=== PATIENT | male | born 1970 | race African-American/Black ===

== ENCOUNTER 2016-08-16 13:02 | Inpatient (IN) | payer OTHER ==
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
[2016-08-16] MEDS ORDERED: P-EPHED 60MG/TRIPROLIDI 2.5MG TABLET PO PRN (14:40)
[2016-08-16] MEDS ORDERED: LOPERAMIDE HCL 2 MG CAPSULE PO PRN (14:40)
[2016-08-16] MEDS ORDERED: MENTHOL/PHENOL 1 EACH UD MM PRN (14:40)
[2016-08-16] MEDS ORDERED: guaiFENesin/D-METHORPHAN HB 10 ML UNIT-DOSE CUPS PO PRN (14:40)
[2016-08-16] MEDS ORDERED: hydrOXYzine PAMOATE 25 MG CAPSULE (FP) PO PRN (14:40)
[2016-08-16] MEDS ORDERED: MAGNESIUM CITRATE 300 ML BOTTLE PO PRN (14:40)
[2016-08-16] MEDS ORDERED: diphenhydrAMINE HCL 50 MG CAPSULE PO PRN (14:40)
[2016-08-16] MEDS ORDERED: IBUPROFEN 400 MG TABLET (FP) PO PRN (14:40)
[2016-08-16] MEDS ORDERED: METHADONE HCL 10 MG TABLET (FOR DETOX USE ONLY) PO ONE ×2 (14:40→23:00)
[2016-08-16] MEDS ORDERED: MAG HYDROX/AL HYDROX/SIMETH 30 ML UNIT-DOSE CUP PO PRN (14:40)
[2016-08-16] MEDS ORDERED: MAGNESIUM HYDROX 2400MG/30ML ORAL SUSPENSION 30 ML CUP PO PRN (14:40)
[2016-08-16] MEDS ORDERED: ACETAMINOPHEN 325 MG TABLET (FP) PO PRN (14:40)
[2016-08-16 14:55] VITALS: BMI 27.2
[2016-08-16] MEDS: chlordiazePOXIDE HCL 25 MG CAPSULE PO PRN (15:45)
[2016-08-16] MEDS: chlordiazePOXIDE HCL 25 MG CAPSULE PO SCH ×2 (17:21→22:20)
[2016-08-16 18:00] LABS: URINE APPEARANCE CLEAR; URINE BILIRUBIN NEGATIVE (NEGATIVE); URINE COLOR STRAW; URINE GLUCOSE (UA) NEGATIVE (NEGATIVE); URINE KETONE NEGATIVE (NEGATIVE); URINE LEUK ESTERASE NEGATIVE (NEGATIVE); URINE NITRITE NEGATIVE (NEGATIVE); URINE PROTEIN NEGATIVE (NEGATIVE); URINE UROBILINOGEN NEGATIVE E.U./dl (0.2-1.0)
[2016-08-16 18:19] LABS: URINE BLOOD 1+ (NEGATIVE)
[2016-08-16 20:38] LABS: URINE MUCUS RARE; URINE RBC <1 /hpf (0-3); URINE WBC <1 /hpf (3-5)
[2016-08-16] MEDS: THIAMINE HCL 100 MG TABLET (FP) PO SCH (22:19)
[2016-08-17] MEDS: chlordiazePOXIDE HCL 25 MG CAPSULE PO SCH ×4 (05:53→22:19)
--- NOTE | 2016-08-17 08:25 | EKG ---
Test Reason : Blood Pressure : / mmHG Vent. Rate : 066 BPM Atrial Rate : 066 BPM P-R Int : 144 ms QRS Dur : 100 ms QT Int : 408 ms P-R-T Axes : 063 064 055 degrees QTc Int : 427 ms NORMAL SINUS RHYTHM NORMAL ECG NO PREVIOUS ECGS AVAILABLE Confirmed by LUÍS PICKARD MD ([id number]) on 08/17/2016 8:25:09 AM Referred By: Confirmed By:LUÍS PICKARD MD
[2016-08-17] MEDS ORDERED: METHADONE HCL 10 MG TABLET (FOR DETOX USE ONLY) PO SCH (10:00)
[2016-08-17] MEDS: NICOTINE 21 MG/24 HOURS TOPICAL PATCH TD SCH (10:10)
[2016-08-17] MEDS: PRENATAL VITAMINS W/ FOLIC ACID TABLET (FP) PO SCH (10:10)
--- NOTE | 2016-08-17 10:33 | PN ---
[facility] CIWA - CIWA Score Nausea/Vomitin-No Nausea/No Vomiting Muscle Tremors: 4-Moderate,w/Arms Extend Anxiety: 4-Mod. Anxious/Guarded Agitation: 4-Moderately Restless Paroxysmal Sweats: 1-Minimal Palms Moist Orientation: 0-Oriented Tacttile Disturbances: 3-Moderate Itch/Numb/Burn Auditory Disturbances: 0-None Visual Disturbances: 0-None Headache: 0-None Present CIWA-Ar Total Score: 16 BHS COWS - Scale Resting Pulse: 0= [place] 80 or Below Sweatin= Chills/Flushing Restless Observation: 3= Extraneous Movement Pupil Size: 2= Moderately Dilated Bone or Joint Aches: 4=Acute Joint/Muscle Pain Runny Nose/ Eye Tearin= Nasal Congestion GI Upset > 30mins: 1= Stomach Cramp Tremor Observation of Outstretched Hands: 1= Tremor [place], Not Seen Yawning Observation: 1= 1-2x During Session Anxiety or Irritability: 2=Irritable/Anxious Goose Flesh Skin: 0=Smooth Skin COWS Score: 16 [facility] Progress Note (SOAP) Subjective: ANXIETY, SWEATS,RUNNY NOSE,INTERMITTENT SLEEP. Objective: 08/17/16 10:32 Vital Signs Temperature 96.2 F L 08/17/16 10:00 Pulse Rate 76 08/17/16 10:00 Respiratory Rate 18 08/17/16 10:00 Blood Pressure 135/80 08/17/16 10:00 O2 Sat by Pulse Oximetry (%) Laboratory Last Values Urine Color Straw 08/16/16 13:00 Urine Appearance Clear 08/16/16 13:00 Urine pH 5.0 (5.0-8.0) 08/16/16 13:00 Ur Specific [place] 1.008 (1.001-1.035) 08/16/16 13:00 Urine Protein Negative (NEGATIVE) 08/16/16 13:00 Urine Glucose (UA) Negative (NEGATIVE) 08/16/16 13:00 Urine Ketones Negative (NEGATIVE) 08/16/16 13:00 Urine Blood 1+ (NEGATIVE) H 08/16/16 13:00 Urine Nitrite Negative (NEGATIVE) 08/16/16 13:00 Urine Bilirubin Negative (NEGATIVE) 08/16/16 13:00 Urine Urobilinogen Negative E.U./dl (0.2-1.0) 08/16/16 13:00 Ur Leukocyte Esterase Negative (NEGATIVE) 08/16/16 13:00 Urine RBC <1 /hpf (0-3) 08/16/16 13:00 Urine WBC <1 /hpf (3-5) 08/16/16 13:00 Urine Mucus Rare 08/16/16 13:00 Assessment: 08/17/16 10:32 WITHDRAWAL SX Plan: CONTINUE DETOX
[2016-08-17 10:46] LABS: MCH 28.4 pg (25.7-33.7); MCHC 32.3 g/dl (32.0-35.9); MEAN CELL VOLUME 87.9 fl (80-96); MEAN PLT VOLUME 8.7 fl (7.5-11.1); PLATELET COUNT 283 K/MM3 (134-434); RDW 13.9 % (11.9-15.9); WHITE BLOOD COUNT 7.8 K/mm3 (4.0-10.0)
[2016-08-17 11:02] LABS: ALBUMIN 4.1 g/dl (3.4-5.0); ALK PHOS 99 U/L (45-117); ANION GAP 9 (8-16); BILIRUBIN,TOTAL 0.5 mg/dL (0.2-1.0); CO2 26 mmol/L (21-32); COCKROFT - GAULT 92.76; CREATININE 1.2 mg/dL (0.7-1.3); GLUCOSE,RANDOM 121 mg/dL (74-106); SGOT/AST 36 U/L (15-37); SGPT/ALT 41 U/L (12-78); TOT PROT 7.4 g/dl (6.4-8.2)
--- NOTE | 2016-08-17 11:41 | CONSULT ---
[facility] Psychiatric Consult - Data Date of interview: 08/17/16 Admission source: [facility] Identifying data: Readmission to [facility] for this 46 y/o AA male seeking detox treatment for heroin and crack dependence.Patient is single,a father of three,domiciled and employed. Substance Abuse History: - Smoking Cessation. Smoking history: Current every day smoker. Have you smoked in the past 12 months: Yes. Aproximately how many cigarettes per day: 20. Cigars Per Day: 0. Hx Chewing Tobacco Use: No. Initiated information on smoking cessation: Yes. 'Breaking Loose' booklet given : 08/16/16. - Substance & Tx. History. Hx Alcohol Use: Yes. Hx Substance Use : Yes. Substance Use Type: Alcohol, Heroin. Hx Substance Use Treatment: Yes. - Substances Abused. Alcohol. Route: Oral. Amount used: beer 3- 240z, Vodka 1pt/d. Age of first use: 13. Date of Last Use: 08/16/16. Heroin. Route: Inhalation. Frequency: Daily. Amount used: 10 bags/d. Age of first use : 28. Date of Last Use: 08/16/16. Confirmed by patient. Medical History: Patient endorses good general health. Psychiatric History: Patient denies. Physical/Sexual Abuse/Trauma History: Patient denies. Additional Comment: Urine Drug Screen Results: MARLENE-Cocaine, OPI-Opiates.Noted. Mental Status Exam - Mental Status Exam Alert and Oriented to: Time, Place Cognitive Function: Good Patient Appearance: Well Groomed Mood: Hopeful, Euthymic Affect: Appropriate, Normal Range Patient Behavior: Appropriate, Cooperative Speech Pattern: Clear, Appropriate Voice Loudness: Normal Thought Process: Goal Oriented Thought Disorder: Not Present Hallucinations: Denies Suicidal Ideation: Denies Homicidal Ideation: Denies Insight/Judgement: Poor Sleep: Poorly, Difficulty falling asleep Appetite: Good Muscle strength/Tone: Normal Gait/Station: Normal Psychiatric Findings - Problem List ([place] 1, 2,3) (1) Alcohol dependence Current Visit: Yes Status: Acute (2) Heroin dependence Current Visit: Yes Status: Acute (3) Nicotine dependence Current Visit: Yes Status: Acute Qualifiers: Nicotine product type: cigarettes Substance use status: uncomplicated Qualified Code(s): F17.210 - Nicotine dependence, cigarettes, uncomplicated (4) Cocaine dependence Current Visit: Yes Status: Acute (5) Insomnia Current Visit: Yes Status: Acute - Initial Treatment Plan Initial Treatment Plan: Psychoeducation.Detoxification.Zolpidem 10 mg po hs prn.Patient made aware of risk of parasomnias.Agrees with this careplan.Observation.
[2016-08-17 12:54] LABS: HIV 1 & 2 AB NEGATIVE; HIV 1 AGp24 NEGATIVE
[2016-08-17] MEDS: chlordiazePOXIDE HCL 25 MG CAPSULE PO PRN (19:56)
[2016-08-17] MEDS: POLYMYXIN B SULFATE/TMP 10 ML OPHTHALMIC SOLUTION OU SCH ×2 (22:18)
[2016-08-17] MEDS: TOLNAFTATE 1% CREAM 15 GM TUBE TP SCH (22:19)
[2016-08-17] MEDS: THIAMINE HCL 100 MG TABLET (FP) PO SCH (22:19)
[2016-08-17] MEDS: ZOLPIDEM TARTRATE 10 MG TABLET (PARK CARE ONLY) PO PRN (22:20)
[2016-08-18] MEDS: chlordiazePOXIDE HCL 25 MG CAPSULE PO SCH ×2 (05:58→10:14)
[2016-08-18] MEDS: METHADONE HCL 5 MG TABLET (FOR DETOX USE ONLY) PO SCH (10:14)
[2016-08-18] MEDS: PRENATAL VITAMINS W/ FOLIC ACID TABLET (FP) PO SCH (10:14)
[2016-08-18] MEDS: POLYMYXIN B SULFATE/TMP 10 ML OPHTHALMIC SOLUTION OU SCH ×4 (10:14→22:27)
[2016-08-18] MEDS: NICOTINE 21 MG/24 HOURS TOPICAL PATCH TD SCH (10:15)
[2016-08-18] MEDS: TOLNAFTATE 1% CREAM 15 GM TUBE TP SCH ×3 (10:15→22:28)
--- NOTE | 2016-08-18 11:41 | PN ---
[facility] CIWA - CIWA Score Nausea/Vomitin-No Nausea/No Vomiting Muscle Tremors: 4-Moderate,w/Arms Extend Anxiety: 5 Agitation: 5 Paroxysmal Sweats: 1-Minimal Palms Moist Orientation: 0-Oriented Tacttile Disturbances: 3-Moderate Itch/Numb/Burn Auditory Disturbances: 0-None Visual Disturbances: 0-None Headache: 0-None Present CIWA-Ar Total Score: 18 BHS COWS - Scale Resting Pulse: 0= [place] 80 or Below Sweatin= Chills/Flushing Restless Observation: 3= Extraneous Movement Pupil Size: 2= Moderately Dilated Bone or Joint Aches: 4=Acute Joint/Muscle Pain Runny Nose/ Eye Tearin= Nasal Congestion GI Upset > 30mins: 1= Stomach Cramp Tremor Observation of Outstretched Hands: 1= Tremor [place], Not Seen Yawning Observation: 1= 1-2x During Session Anxiety or Irritability: 2=Irritable/Anxious Goose Flesh Skin: 0=Smooth Skin COWS Score: 16 S Progress Note (SOAP) Subjective: ANXIETY,IRRITABILITY,SWEATS/CHILLS. Objective: 08/18/16 11:41 Vital Signs Temperature 96.1 F L 08/18/16 09:21 Pulse Rate 68 08/18/16 09:21 Respiratory Rate 18 08/18/16 09:21 Blood Pressure 132/91 08/18/16 09:21 O2 Sat by Pulse Oximetry (%) Laboratory Last Values WBC 7.8 K/mm3 (4.0-10.0) 08/17/16 06:00 RBC 4.79 M/mm3 (4.00-5.60) 08/17/16 06:00 Hgb 13.6 GM/dL (11.7-16.9) 08/17/16 06:00 Hct 42.1 % (35.4-49) 08/17/16 06:00 MCV 87.9 fl (80-96) 08/17/16 06:00 MCHC 32.3 g/dl (32.0-35.9) 08/17/16 06:00 RDW 13.9 % (11.9-15.9) 08/17/16 06:00 Plt Count 283 K/MM3 (134-434) D 08/17/16 06:00 MPV 8.7 fl (7.5-11.1) 08/17/16 06:00 Sodium 138 mmol/L (136-145) 08/17/16 06:00 Potassium 4.6 mmol/L (3.5-5.1) 08/17/16 06:00 Chloride 103 mmol/L (98-107) 08/17/16 06:00 Carbon Dioxide 26 mmol/L (21-32) 08/17/16 06:00 Anion Gap 9 (8-16) 08/17/16 06:00 BUN 10 mg/dL (7-18) 08/17/16 06:00 Creatinine 1.2 mg/dL (0.7-1.3) 08/17/16 06:00 Creat Clearance w eGFR > 60 (>60) 08/17/16 06:00 Random Glucose 121 mg/dL (74-106) H D 08/17/16 06:00 Calcium 9.0 mg/dL (8.5-10.1) 08/17/16 06:00 Total Bilirubin 0.5 mg/dL (0.2-1.0) D 08/17/16 06:00 AST 36 U/L (15-37) D 08/17/16 06:00 ALT 41 U/L (12-78) D 08/17/16 06:00 Alkaline Phosphatase 99 U/L (45-117) D 08/17/16 06:00 Total Protein 7.4 g/dl (6.4-8.2) D 08/17/16 06:00 Albumin 4.1 g/dl (3.4-5.0) D 08/17/16 06:00 Urine Color Straw 08/16/16 13:00 Urine Appearance Clear 08/16/16 13:00 Urine pH 5.0 (5.0-8.0) 08/16/16 13:00 Ur Specific [place] 1.008 (1.001-1.035) 08/16/16 13:00 Urine Protein Negative (NEGATIVE) 08/16/16 13:00 Urine Glucose (UA) Negative (NEGATIVE) 08/16/16 13:00 Urine Ketones Negative (NEGATIVE) 08/16/16 13:00 Urine Blood 1+ (NEGATIVE) H 08/16/16 13:00 Urine Nitrite Negative (NEGATIVE) 08/16/16 13:00 Urine Bilirubin Negative (NEGATIVE) 08/16/16 13:00 Urine Urobilinogen Negative E.U./dl (0.2-1.0) 08/16/16 13:00 Ur Leukocyte Esterase Negative (NEGATIVE) 08/16/16 13:00 Urine RBC <1 /hpf (0-3) 08/16/16 13:00 Urine WBC <1 /hpf (3-5) 08/16/16 13:00 Urine Mucus Rare 08/16/16 13:00 RPR Titer Nonreactive (NONREACTIVE) 08/17/16 06:00 HIV 1&2 Antibody Screen Negative 08/16/16 14:00 HIV P24 Antigen Negative 08/16/16 14:00 Assessment: 08/18/16 11:41 WITHDRAWAL SX Plan: CONTINUE DETOX
[2016-08-18] MEDS: NICOTINE POLACRILEX 4 MG GUM BUC PRN (17:22)
[2016-08-18] MEDS: chlordiazePOXIDE 5 MG CAPSULE PO SCH ×2 (17:45→22:28)
[2016-08-18] MEDS: THIAMINE HCL 100 MG TABLET (FP) PO SCH (22:28)
[2016-08-18] MEDS: ZOLPIDEM TARTRATE 10 MG TABLET (PARK CARE ONLY) PO PRN (22:30)
[2016-08-19] MEDS ORDERED: CYCLOBENZAPRINE HCL 10 MG TABLET (FP) PO PRN (00:04)
[2016-08-19] MEDS: chlordiazePOXIDE 5 MG CAPSULE PO SCH ×2 (05:26→10:21)
[2016-08-19] MEDS: POLYMYXIN B SULFATE/TMP 10 ML OPHTHALMIC SOLUTION OU SCH ×4 (10:20→22:11)
[2016-08-19] MEDS: NICOTINE 21 MG/24 HOURS TOPICAL PATCH TD SCH (10:21)
[2016-08-19] MEDS: TOLNAFTATE 1% CREAM 15 GM TUBE TP SCH ×2 (10:21→22:45)
[2016-08-19] MEDS: PRENATAL VITAMINS W/ FOLIC ACID TABLET (FP) PO SCH (10:21)
[2016-08-19] MEDS: METHADONE HCL 5 MG TABLET (FOR DETOX USE ONLY) PO SCH (10:21)
[2016-08-19] MEDS: NICOTINE POLACRILEX 4 MG GUM BUC PRN (12:22)
--- NOTE | 2016-08-19 12:24 | PN ---
BHS Progress Note (SOAP) Subjective: Sweating,interrupted sleep,restless Objective: 08/19/16 12:24 Vital Signs - 8 hr 08/19/16 08/19/16 06:37 09:26 Temperature 96.7 F L 96.5 F L Pulse Rate 65 81 Respiratory 18 18 Rate Blood Pressure 117/80 135/84 Laboratory Last Values WBC 7.8 K/mm3 (4.0-10.0) 08/17/16 06:00 RBC 4.79 M/mm3 (4.00-5.60) 08/17/16 06:00 Hgb 13.6 GM/dL (11.7-16.9) 08/17/16 06:00 Hct 42.1 % (35.4-49) 08/17/16 06:00 MCV 87.9 fl (80-96) 08/17/16 06:00 MCHC 32.3 g/dl (32.0-35.9) 08/17/16 06:00 RDW 13.9 % (11.9-15.9) 08/17/16 06:00 Plt Count 283 K/MM3 (134-434) D 08/17/16 06:00 MPV 8.7 fl (7.5-11.1) 08/17/16 06:00 Sodium 138 mmol/L (136-145) 08/17/16 06:00 Potassium 4.6 mmol/L (3.5-5.1) 08/17/16 06:00 Chloride 103 mmol/L (98-107) 08/17/16 06:00 Carbon Dioxide 26 mmol/L (21-32) 08/17/16 06:00 Anion Gap 9 (8-16) 08/17/16 06:00 BUN 10 mg/dL (7-18) 08/17/16 06:00 Creatinine 1.2 mg/dL (0.7-1.3) 08/17/16 06:00 Creat Clearance w eGFR > 60 (>60) 08/17/16 06:00 Random Glucose 121 mg/dL (74-106) H D 08/17/16 06:00 Calcium 9.0 mg/dL (8.5-10.1) 08/17/16 06:00 Total Bilirubin 0.5 mg/dL (0.2-1.0) D 08/17/16 06:00 AST 36 U/L (15-37) D 08/17/16 06:00 ALT 41 U/L (12-78) D 08/17/16 06:00 Alkaline Phosphatase 99 U/L (45-117) D 08/17/16 06:00 Total Protein 7.4 g/dl (6.4-8.2) D 08/17/16 06:00 Albumin 4.1 g/dl (3.4-5.0) D 08/17/16 06:00 Urine Color Straw 08/16/16 13:00 Urine Appearance Clear 08/16/16 13:00 Urine pH 5.0 (5.0-8.0) 08/16/16 13:00 Ur Specific [place] 1.008 (1.001-1.035) 08/16/16 13:00 Urine Protein Negative (NEGATIVE) 08/16/16 13:00 Urine Glucose (UA) Negative (NEGATIVE) 08/16/16 13:00 Urine Ketones Negative (NEGATIVE) 08/16/16 13:00 Urine Blood 1+ (NEGATIVE) H 08/16/16 13:00 Urine Nitrite Negative (NEGATIVE) 08/16/16 13:00 Urine Bilirubin Negative (NEGATIVE) 08/16/16 13:00 Urine Urobilinogen Negative E.U./dl (0.2-1.0) 08/16/16 13:00 Ur Leukocyte Esterase Negative (NEGATIVE) 08/16/16 13:00 Urine RBC <1 /hpf (0-3) 08/16/16 13:00 Urine WBC <1 /hpf (3-5) 08/16/16 13:00 Urine Mucus Rare 08/16/16 13:00 RPR Titer Nonreactive (NONREACTIVE) 08/17/16 06:00 HIV 1&2 Antibody Screen Negative 08/16/16 14:00 HIV P24 Antigen Negative 08/16/16 14:00 labs noted Assessment: 08/19/16 12:24 Withdrawal sx. Plan: Continue detox
[2016-08-19] MEDS: chlordiazePOXIDE HCL 10 MG CAPSULE PO SCH ×2 (17:25→22:11)
[2016-08-19] MEDS: THIAMINE HCL 100 MG TABLET (FP) PO SCH (22:11)
[2016-08-19] MEDS: ZOLPIDEM TARTRATE 10 MG TABLET (PARK CARE ONLY) PO PRN (22:12)
[2016-08-20] MEDS: chlordiazePOXIDE HCL 10 MG CAPSULE PO SCH ×2 (06:12→10:12)
[2016-08-20] MEDS ORDERED: METHADONE HCL 10 MG TABLET (FOR DETOX USE ONLY) PO SCH (10:00)
[2016-08-20] MEDS: NICOTINE 21 MG/24 HOURS TOPICAL PATCH TD SCH (10:12)
[2016-08-20] MEDS: POLYMYXIN B SULFATE/TMP 10 ML OPHTHALMIC SOLUTION OU SCH ×4 (10:12→22:25)
[2016-08-20] MEDS: PRENATAL VITAMINS W/ FOLIC ACID TABLET (FP) PO SCH (10:12)
[2016-08-20] MEDS: TOLNAFTATE 1% CREAM 15 GM TUBE TP SCH ×2 (10:13→22:25)
[2016-08-20] MEDS: NICOTINE POLACRILEX 4 MG GUM BUC PRN ×2 (10:13→20:27)
--- NOTE | 2016-08-20 15:42 | PN ---
BHS Progress Note (SOAP) Subjective: Sweating (mild) only symptoms reported by pt. today. Objective: PT. A & O X 3, OBSERVED AMBULATING ON UNIT. 08/20/16 15:40 Vital Signs Temperature 96.7 F L 08/20/16 13:44 Pulse Rate 72 08/20/16 13:44 Respiratory Rate 18 08/20/16 13:44 Blood Pressure 130/84 08/20/16 13:44 O2 Sat by Pulse Oximetry (%) Laboratory Last Values WBC 7.8 K/mm3 (4.0-10.0) 08/17/16 06:00 RBC 4.79 M/mm3 (4.00-5.60) 08/17/16 06:00 Hgb 13.6 GM/dL (11.7-16.9) 08/17/16 06:00 Hct 42.1 % (35.4-49) 08/17/16 06:00 MCV 87.9 fl (80-96) 08/17/16 06:00 MCHC 32.3 g/dl (32.0-35.9) 08/17/16 06:00 RDW 13.9 % (11.9-15.9) 08/17/16 06:00 Plt Count 283 K/MM3 (134-434) D 08/17/16 06:00 MPV 8.7 fl (7.5-11.1) 08/17/16 06:00 Sodium 138 mmol/L (136-145) 08/17/16 06:00 Potassium 4.6 mmol/L (3.5-5.1) 08/17/16 06:00 Chloride 103 mmol/L (98-107) 08/17/16 06:00 Carbon Dioxide 26 mmol/L (21-32) 08/17/16 06:00 Anion Gap 9 (8-16) 08/17/16 06:00 BUN 10 mg/dL (7-18) 08/17/16 06:00 Creatinine 1.2 mg/dL (0.7-1.3) 08/17/16 06:00 Creat Clearance w eGFR > 60 (>60) 08/17/16 06:00 Random Glucose 121 mg/dL (74-106) H D 08/17/16 06:00 Calcium 9.0 mg/dL (8.5-10.1) 08/17/16 06:00 Total Bilirubin 0.5 mg/dL (0.2-1.0) D 08/17/16 06:00 AST 36 U/L (15-37) D 08/17/16 06:00 ALT 41 U/L (12-78) D 08/17/16 06:00 Alkaline Phosphatase 99 U/L (45-117) D 08/17/16 06:00 Total Protein 7.4 g/dl (6.4-8.2) D 08/17/16 06:00 Albumin 4.1 g/dl (3.4-5.0) D 08/17/16 06:00 Urine Color Straw 08/16/16 13:00 Urine Appearance Clear 08/16/16 13:00 Urine pH 5.0 (5.0-8.0) 08/16/16 13:00 Ur Specific [place] 1.008 (1.001-1.035) 08/16/16 13:00 Urine Protein Negative (NEGATIVE) 08/16/16 13:00 Urine Glucose (UA) Negative (NEGATIVE) 08/16/16 13:00 Urine Ketones Negative (NEGATIVE) 08/16/16 13:00 Urine Blood 1+ (NEGATIVE) H 08/16/16 13:00 Urine Nitrite Negative (NEGATIVE) 08/16/16 13:00 Urine Bilirubin Negative (NEGATIVE) 08/16/16 13:00 Urine Urobilinogen Negative E.U./dl (0.2-1.0) 08/16/16 13:00 Ur Leukocyte Esterase Negative (NEGATIVE) 08/16/16 13:00 Urine RBC <1 /hpf (0-3) 08/16/16 13:00 Urine WBC <1 /hpf (3-5) 08/16/16 13:00 Urine Mucus Rare 08/16/16 13:00 RPR Titer Nonreactive (NONREACTIVE) 08/17/16 06:00 HIV 1&2 Antibody Screen Negative 08/16/16 14:00 HIV P24 Antigen Negative 08/16/16 14:00 LABS NOTED. Assessment: 08/20/16 15:41 WITHDRAWAL SYMPTOMS. Plan: CONTINUE DETOX. ADVISED PATIENT TO FOLLOW-UP WITH [facility] / REHAB MEDICAL PROVIDER AFTER DISCHARGE FROM DETOX FOR GENERAL MEDICAL ASSESSMENT AND FOR ABNORMAL ADMISSION LAB VALUES.
[2016-08-20] MEDS: THIAMINE HCL 100 MG TABLET (FP) PO SCH (22:26)
[2016-08-21] MEDS ORDERED: METHADONE HCL 5 MG TABLET (FOR DETOX USE ONLY) PO SCH (06:00)
[2016-08-21 06:17] VITALS: BP 122/76; PULSE 69; TEMP 96.9
--- NOTE | 2016-08-21 11:50 | DS ---
[facility] Detox Discharge Summary Admission Date: 08/16/16 Discharge Date: 08/21/16 - History Present History: Alcohol Dependence, Opioid Dependence Pertinent Past History: Denies - Physical Exam Results Vital Signs: Vital Signs Temperature 96.9 F L 08/21/16 06:16 Pulse Rate 69 08/21/16 06:16 Respiratory Rate 18 08/21/16 06:16 Blood Pressure 122/76 08/21/16 06:16 O2 Sat by Pulse Oximetry (%) Pertinent Admission Physical Exam Findings: Withdrawal symptoms Laboratory Tests 08/16/16 08/16/16 08/17/16 13:00 14:00 06:00 WBC 7.8 RBC 4.79 Hgb 13.6 Hct 42.1 MCV 87.9 MCHC 32.3 RDW 13.9 Plt Count 283 D MPV 8.7 Sodium Potassium Chloride Carbon Dioxide Anion Gap BUN Creatinine Creat Clearance w eGFR Random Glucose Calcium Total Bilirubin AST ALT Alkaline Phosphatase Total Protein Albumin Urine Color Straw Urine Appearance Clear Urine pH 5.0 Ur Specific [place] 1.008 Urine Protein Negative Urine Glucose (UA) Negative Urine Ketones Negative Urine Blood 1+ H Urine Nitrite Negative Urine Bilirubin Negative Urine Urobilinogen Negative Ur Leukocyte Esterase Negative Urine RBC <1 Urine WBC <1 Urine Mucus Rare RPR Titer HIV 1&2 Antibody Screen Negative HIV P24 Antigen Negative 08/17/16 08/17/16 06:00 06:00 WBC RBC Hgb Hct MCV MCHC RDW Plt Count MPV Sodium 138 Potassium 4.6 Chloride 103 Carbon Dioxide 26 Anion Gap 9 BUN 10 Creatinine 1.2 Creat Clearance w eGFR > 60 Random Glucose 121 H D Calcium 9.0 Total Bilirubin 0.5 D AST 36 D ALT 41 D Alkaline Phosphatase 99 D Total Protein 7.4 D Albumin 4.1 D Urine Color Urine Appearance Urine pH Ur Specific [place] Urine Protein Urine Glucose (UA) Urine Ketones Urine Blood Urine Nitrite Urine Bilirubin Urine Urobilinogen Ur Leukocyte Esterase Urine RBC Urine WBC Urine Mucus RPR Titer Nonreactive HIV 1&2 Antibody Screen HIV P24 Antigen Labs noted - Treatment Hospital Course: Detox Protocol Followed, Detoxed Safely, Responded well, Discharged Condition Good - Medication Discharge Medications: Ambulatory Orders Polymyxin B Sulf/Trimethoprim [Polymyxin B-Tmp Eye Drops] 10 ml OP QID 08/17/16 - Diagnosis (1) Nicotine dependence Status: Chronic Qualifiers: Nicotine product type: cigarettes Substance use status: uncomplicated Qualified Code(s): F17.210 - Nicotine dependence, cigarettes, uncomplicated (2) Alcohol dependence with uncomplicated withdrawal Status: Acute (3) Opioid dependence with withdrawal Status: Acute - AMA Did Patient Leave Against Medical Advice: No
== END 2016-08-21 06:35 | disposition home or self-care (01) | DRG 773 ==
LOC: YASAS 13:02 → Y3N 15:01
PROVIDERS: ADMIT Internal Medicine; ATTEND Internal Medicine
PROC: HZ2ZZZZ Detoxification Services for Substance Abuse Treatment (ICD-10-PCS; principal; 2016-08-21)
DX: F11.23 Opioid dependence with withdrawal (principal); F10.230 Alcohol dependence with withdrawal, uncomplicated; F14.20 Cocaine dependence, uncomplicated; F17.210 Nicotine dependence, cigarettes, uncomplicated; F32.9 Major depressive disorder, single episode, unspecified; G47.00 Insomnia, unspecified; Z59.0 Homelessness
CPT/HCPCS: 36415; 80053; 81003; 81015; 85027; 86593; 87389; 93005; 93010

== ENCOUNTER 2017-02-15 13:04 | Inpatient (IN) | payer OTHER ==
[2017-02-15 14:47] VITALS: BMI 28.7
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
[2017-02-15] MEDS ORDERED: guaiFENesin/D-METHORPHAN HB 10 ML UNIT-DOSE CUPS PO PRN (17:58)
[2017-02-15] MEDS ORDERED: LOPERAMIDE HCL 2 MG CAPSULE PO PRN (17:58)
[2017-02-15] MEDS ORDERED: MAG HYDROX/AL HYDROX/SIMETH 30 ML UNIT-DOSE CUP PO PRN (17:58)
[2017-02-15] MEDS ORDERED: ACETAMINOPHEN 325 MG TABLET (FP) PO PRN (17:58)
[2017-02-15] MEDS ORDERED: MAGNESIUM CITRATE 300 ML BOTTLE PO PRN (17:58)
[2017-02-15] MEDS ORDERED: hydrOXYzine PAMOATE 50 MG CAPSULE (FP) PO PRN (17:58)
[2017-02-15] MEDS ORDERED: MAGNESIUM HYDROX 2400MG/30ML ORAL SUSPENSION 30 ML CUP PO PRN (17:58)
[2017-02-15] MEDS ORDERED: MENTHOL/PHENOL 1 EACH UD MM PRN (17:58)
[2017-02-15] MEDS ORDERED: P-EPHED 60MG/TRIPROLIDI 2.5MG TABLET PO PRN (17:58)
[2017-02-15] MEDS ORDERED: chlordiazePOXIDE HCL 25 MG CAPSULE PO PRN (17:58)
[2017-02-15] MEDS ORDERED: IBUPROFEN 400 MG TABLET (FP) PO PRN (17:58)
[2017-02-15] MEDS ORDERED: METHADONE HCL 10 MG TABLET (FOR DETOX USE ONLY) PO ONE ×2 (18:30→23:00)
[2017-02-15] MEDS: chlordiazePOXIDE HCL 25 MG CAPSULE PO SCH (22:03)
[2017-02-15] MEDS: THIAMINE HCL 100 MG TABLET (FP) PO SCH (22:03)
[2017-02-15 22:32] LABS: URINE APPEARANCE CLEAR; URINE BILIRUBIN NEGATIVE (NEGATIVE); URINE BLOOD 1+ (NEGATIVE); URINE COLOR YELLOW; URINE GLUCOSE (UA) NEGATIVE (NEGATIVE); URINE KETONE NEGATIVE (NEGATIVE); URINE NITRITE NEGATIVE (NEGATIVE); URINE PROTEIN NEGATIVE (NEGATIVE); URINE UROBILINOGEN NEGATIVE mg/dL (0.2-1.0)
[2017-02-15 23:41] LABS: URINE MUCUS 2+; URINE RBC 0-2 /hpf (0-3); URINE WBC 0-2 /hpf (3-5)
[2017-02-16] MEDS: chlordiazePOXIDE HCL 25 MG CAPSULE PO SCH ×4 (05:58→22:08)
[2017-02-16] MEDS ORDERED: METHADONE HCL 10 MG TABLET (FOR DETOX USE ONLY) PO SCH (10:00)
[2017-02-16 10:12] LABS: MCH 27.9 pg (25.7-33.7); MCHC 32.4 g/dl (32.0-35.9); MEAN CELL VOLUME 86.3 fl (80-96); MEAN PLT VOLUME 8.5 fl (7.5-11.1); PLATELET COUNT 244 K/MM3 (134-434); RDW 14.5 % (11.9-15.9); WHITE BLOOD COUNT 7.6 K/mm3 (4.0-10.0)
[2017-02-16 10:21] LABS: URINE LEUK ESTERASE Negative (NEGATIVE)
[2017-02-16 10:29] LABS: ALBUMIN 3.1 g/dl (3.4-5.0); ANION GAP 7 (8-16); BILIRUBIN,TOTAL 0.3 mg/dL (0.2-1.0); CALCIUM 8.2 mg/dL (8.5-10.1); CO2 27 mmol/L (21-32); CREATININE 1.1 mg/dL (0.7-1.3); GLUCOSE,RANDOM 120 mg/dL (74-106); SGOT/AST 23 U/L (15-37); SGPT/ALT 40 U/L (12-78)
[2017-02-16 10:30] LABS: ALK PHOS 93 U/L (45-117)
--- NOTE | 2017-02-16 10:42 | PN ---
S CIWA - CIWA Score Nausea/Vomitin Muscle Tremors: 4-Moderate,w/Arms Extend Anxiety: 4-Mod. Anxious/Guarded Agitation: 4-Moderately Restless Paroxysmal Sweats: 1-Minimal Palms Moist Orientation: 0-Oriented Tacttile Disturbances: 3-Moderate Itch/Numb/Burn Auditory Disturbances: 0-None Visual Disturbances: 0-None Headache: 0-None Present CIWA-Ar Total Score: 19 BHS COWS - Scale Resting Pulse: 0= [place] 80 or Below Sweatin= Chills/Flushing Restless Observation: 3= Extraneous Movement Pupil Size: 2= Moderately Dilated Bone or Joint Aches: 4=Acute Joint/Muscle Pain Runny Nose/ Eye Tearin= Runny Nose/Eyes GI Upset > 30mins: 1= Stomach Cramp Tremor Observation of Outstretched Hands: 1= Tremor [place], Not Seen Yawning Observation: 1= 1-2x During Session Anxiety or Irritability: 2=Irritable/Anxious Goose Flesh Skin: 0=Smooth Skin COWS Score: 17 S Progress Note (SOAP) Subjective: PT C/O IRRITABILITY,STOMACH CRAMPS,RUNNY NOSE, "DOPE SICK". Objective: 02/16/17 10:41 Vital Signs Temperature 96.2 F L 02/16/17 09:18 Pulse Rate 62 02/16/17 09:18 Respiratory Rate 18 02/16/17 09:18 Blood Pressure 122/78 02/16/17 09:18 O2 Sat by Pulse Oximetry (%) Laboratory Last Values WBC 7.6 K/mm3 (4.0-10.0) 02/16/17 07:00 RBC 4.45 M/mm3 (4.00-5.60) 02/16/17 07:00 Hgb 12.4 GM/dL (11.7-16.9) 02/16/17 07:00 Hct 38.4 % (35.4-49) 02/16/17 07:00 MCV 86.3 fl (80-96) 02/16/17 07:00 MCH 27.9 pg (25.7-33.7) 02/16/17 07:00 MCHC 32.4 g/dl (32.0-35.9) 02/16/17 07:00 RDW 14.5 % (11.9-15.9) 02/16/17 07:00 Plt Count 244 K/MM3 (134-434) 02/16/17 07:00 MPV 8.5 fl (7.5-11.1) 02/16/17 07:00 Sodium 141 mmol/L (136-145) 02/16/17 07:00 Potassium 4.1 mmol/L (3.5-5.1) 02/16/17 07:00 Chloride 107 mmol/L (98-107) 02/16/17 07:00 Carbon Dioxide 27 mmol/L (21-32) 02/16/17 07:00 Anion Gap 7 (8-16) L 02/16/17 07:00 BUN 18 mg/dL (7-18) D 02/16/17 07:00 Creatinine 1.1 mg/dL (0.7-1.3) 02/16/17 07:00 Creat Clearance w eGFR > 60 (>60) 02/16/17 07:00 Random Glucose 120 mg/dL (74-106) H 02/16/17 07:00 Calcium 8.2 mg/dL (8.5-10.1) L 02/16/17 07:00 Total Bilirubin 0.3 mg/dL (0.2-1.0) D 02/16/17 07:00 AST 23 U/L (15-37) D 02/16/17 07:00 ALT 40 U/L (12-78) 02/16/17 07:00 Alkaline Phosphatase 93 U/L (45-117) 02/16/17 07:00 Total Protein 6.0 g/dl (6.4-8.2) L 02/16/17 07:00 Albumin 3.1 g/dl (3.4-5.0) L D 02/16/17 07:00 Urine Color Yellow 02/15/17 22:10 Urine Appearance Clear 02/15/17 22:10 Urine pH 5.0 (5.0-8.0) 02/15/17 22:10 Urine Protein Negative (NEGATIVE) 02/15/17 22:10 Urine Glucose (UA) Negative (NEGATIVE) 02/15/17 22:10 Urine Ketones Negative (NEGATIVE) 02/15/17 22:10 Urine Blood 1+ (NEGATIVE) H 02/15/17 22:10 Urine Nitrite Negative (NEGATIVE) 02/15/17 22:10 Urine Bilirubin Negative (NEGATIVE) 02/15/17 22:10 Urine Urobilinogen Negative mg/dL (0.2-1.0) 02/15/17 22:10 Urine RBC 0-2 /hpf (0-3) 02/15/17 22:10 Urine WBC 0-2 /hpf (3-5) 02/15/17 22:10 Urine Mucus 2+ 02/15/17 22:10 Assessment: 02/16/17 10:41 WITHDRAWAL SX Plan: CONTINUE DETOX
--- NOTE | 2017-02-16 10:44 | EKG ---
Test Reason : Blood Pressure : / mmHG Vent. Rate : 052 BPM Atrial Rate : 052 BPM P-R Int : 154 ms QRS Dur : 106 ms QT Int : 480 ms P-R-T Axes : 069 067 065 degrees QTc Int : 446 ms SINUS BRADYCARDIA OTHERWISE NORMAL ECG WHEN COMPARED WITH ECG OF 16-AUG-2016 14:50, NO SIGNIFICANT CHANGE WAS FOUND Confirmed by IZABELA COLORADO MD ([id number]) on 02/16/2017 10:44:43 AM Referred By: Confirmed By:IZABELA COLORADO MD
[2017-02-16] MEDS: NICOTINE 14 MG/24 HOURS TOPICAL PATCH TD SCH (10:56)
[2017-02-16] MEDS: FLUoxetine HCL 10 MG CAPSULE (FP) PO SCH (10:56)
[2017-02-16] MEDS: PRENATAL VITAMINS W/ FOLIC ACID TABLET (FP) PO SCH (10:56)
--- NOTE | 2017-02-16 11:00 | CONSULT ---
[facility] Psychiatric Consult - Data Date of interview: 02/16/17 Admission source: [facility] Identifying data: This is 46 years old male with no psychiatric hospitalization hiostory iontoxicated with: Alcohol, Cocaine and Opioids Substance Abuse History: Smoking history: Current every day smoker. Have you smoked in the past 12 months: Yes. Aproximately how many cigarettes per day: 20. Cigars Per Day: 0. Hx Chewing Tobacco Use: No. Initiated information on smoking cessation: Yes. 'Breaking Loose' booklet given: 02/15/17. - Substance & Tx. History. Hx Alcohol Use: Yes (Beer, Vodka). Hx Substance Use: Yes ( Heroin, Cocaine,). Substance Use Type: Cocaine, Heroin. Hx Substance Use Treatment: Yes ([facility] 07/2016). - Substances Abused. Heroin. Route: Inhalation. Frequency: Daily. Amount used: 12-16 BAGS. Age of first use: 28. Date of Last Use: 02/15/17. Alcohol. Route: Oral. Frequency: Daily. Amount used: 8 24 OZ CANS BEER/ 8 SHOTS OF VODKA. Age of first use: 16. Date of Last Use: 02/15/17. Cocaine. Route: Inhalation. Frequency: 3-6 times per week. Amount used: $30. Age of first use: 21. Date of Last Use: 02/14/17 Medical History: Denies any significant medical problem Psychiatric History: Patient reprots history of depression and anxiety, reports taking prior to admission: Prozoac 10mg poqd. Gabapentin 300mg po tid Physical/Sexual Abuse/Trauma History: Denies Additional Comment: Prozoac 10mg poqd. Gabapentin 300mg po tid Mental Status Exam - Mental Status Exam Alert and Oriented to: Person Cognitive Function: Fair Patient Appearance: Unkempt Mood: Apprehensive Affect: Mood Congruent Patient Behavior: Cooperative Speech Pattern: Appropriate Voice Loudness: Normal Thought Process: Circumstantial, Goal Oriented Thought Disorder: Being Controlled Hallucinations: Denies Suicidal Ideation: Denies Homicidal Ideation: Denies Insight/Judgement: Fair Sleep: Difficulty falling asleep Appetite: Weight gain Muscle strength/Tone: Normal Gait/Station: Shuffling Additional Comments: Prozoac 10mg poqd. Gabapentin 300mg po tid Psychiatric Findings - Problem List ([place] 1, 2,3) (1) Alcohol dependence with uncomplicated withdrawal Current Visit: Yes Status: Acute (2) Cocaine dependence Current Visit: Yes Status: Acute Qualifiers: Substance use status: uncomplicated Qualified Code(s): F14.20 - Cocaine dependence, uncomplicated; F14.20 - Cocaine dependence, uncomplicated; F14.20 - Cocaine dependence, uncomplicated (3) Nicotine dependence Current Visit: Yes Status: Acute Qualifiers: Nicotine product type: cigarettes Substance use status: in withdrawal Qualified Code(s): F17.213 - Nicotine dependence, cigarettes, with withdrawal; F17.213 - Nicotine dependence, cigarettes, with withdrawal (4) Opioid dependence with withdrawal Current Visit: Yes Status: Acute (5) Alcohol dependence Current Visit: No Status: Acute (6) Heroin dependence Current Visit: No Status: Acute (7) Cocaine abuse Current Visit: No Status: Chronic (8) Drug-induced mood disorder Current Visit: Yes Status: Acute - Initial Treatment Plan Initial Treatment Plan: Prozoac 10mg poqd. Gabapentin 300mg po tid
[2017-02-16] MEDS: GABAPENTIN 300 MG CAPSULE (FP) PO SCH ×2 (14:36→22:08)
[2017-02-16] MEDS: NICOTINE POLACRILEX 2 MG GUM BC PRN ×2 (15:32→20:26)
[2017-02-16] MEDS: prednisoLONE ACETATE 1% OPHTH SUSP 5 ML BOTTLE OD SCH ×2 (17:33→22:07)
[2017-02-16] MEDS ORDERED: prednisoLONE ACETATE 1% OPHTH SUSP 5 ML BOTTLE OS SCH (18:00)
[2017-02-16] MEDS: THIAMINE HCL 100 MG TABLET (FP) PO SCH (22:06)
[2017-02-16] MEDS: diphenhydrAMINE HCL 50 MG CAPSULE PO PRN (22:08)
[2017-02-17] MEDS: GABAPENTIN 300 MG CAPSULE (FP) PO SCH ×3 (05:55→22:03)
[2017-02-17] MEDS: chlordiazePOXIDE HCL 25 MG CAPSULE PO SCH ×3 (05:55→17:38)
[2017-02-17] MEDS: NICOTINE POLACRILEX 2 MG GUM BC PRN ×3 (09:57→22:04)
[2017-02-17] MEDS: PRENATAL VITAMINS W/ FOLIC ACID TABLET (FP) PO SCH (11:00)
[2017-02-17] MEDS: METHADONE HCL 5 MG TABLET (FOR DETOX USE ONLY) PO SCH (11:00)
[2017-02-17] MEDS: NICOTINE 14 MG/24 HOURS TOPICAL PATCH TD SCH (11:01)
[2017-02-17] MEDS: prednisoLONE ACETATE 1% OPHTH SUSP 5 ML BOTTLE OD SCH ×4 (11:01→22:03)
[2017-02-17] MEDS: FLUoxetine HCL 10 MG CAPSULE (FP) PO SCH (11:45)
--- NOTE | 2017-02-17 12:06 | PN ---
[facility] CIWA - CIWA Score Nausea/Vomitin Muscle Tremors: 4-Moderate,w/Arms Extend Anxiety: 4-Mod. Anxious/Guarded Agitation: 4-Moderately Restless Paroxysmal Sweats: No Perspiration Orientation: 0-Oriented Tacttile Disturbances: 0-None Auditory Disturbances: 0-None Visual Disturbances: 0-None Headache: 0-None Present CIWA-Ar Total Score: 15 S COWS - Scale Resting Pulse: 1= [place] 81-100 Sweatin= Chills/Flushing Restless Observation: 1= Difficult to Sit Still Pupil Size: 1= Pupils >than Normal Bone or Joint Aches: 1= Mild Discomfort Runny Nose/ Eye Tearin= Nasal Congestion GI Upset > 30mins: 2= Nausea/Diarrhea Tremor Observation of Outstretched Hands: 1= Tremor [place], Not Seen Yawning Observation: 1= 1-2x During Session Anxiety or Irritability: 2=Irritable/Anxious Goose Flesh Skin: 3=Piloerection COWS Score: 15 [facility] Progress Note (SOAP) Subjective: nausea, sweats, interrupted sleep, anxiety, tremors Objective: 02/17/17 12:04 Vital Signs - 24 hr 02/16/17 02/16/17 02/16/17 14:06 17:34 22:16 Temperature 96.6 F L 97.7 F 97.7 F Pulse Rate 64 61 71 Respiratory 18 18 18 Rate Blood Pressure 116/66 110/76 101/64 02/17/17 02/17/17 02/17/17 00:34 03:38 06:11 Temperature 97.7 F Pulse Rate 55 L Respiratory 18 18 18 Rate Blood Pressure 114/70 02/17/17 10:00 Temperature 97.9 F Pulse Rate 64 Respiratory 18 Rate Blood Pressure 111/75 Laboratory Results - last 24 hr 02/16/17 07:00 RPR Titer Nonreactive labs pending Laboratory Tests 02/15/17 02/16/17 02/16/17 22:10 07:00 07:00 WBC 7.6 RBC 4.45 Hgb 12.4 Hct 38.4 MCV 86.3 MCH 27.9 MCHC 32.4 RDW 14.5 Plt Count 244 MPV 8.5 Sodium 141 Potassium 4.1 Chloride 107 Carbon Dioxide 27 Anion Gap 7 L BUN 18 D Creatinine 1.1 Creat Clearance w eGFR > 60 Random Glucose 120 H Calcium 8.2 L Total Bilirubin 0.3 D AST 23 D ALT 40 Alkaline Phosphatase 93 Total Protein 6.0 L Albumin 3.1 L D Urine Color Yellow Urine Appearance Clear Urine pH 5.0 Ur Specific [place] 1.025 Urine Protein Negative Urine Glucose (UA) Negative Urine Ketones Negative Urine Blood 1+ H Urine Nitrite Negative Urine Bilirubin Negative Urine Urobilinogen Negative Ur Leukocyte Esterase Negative Urine RBC 0-2 Urine WBC 0-2 Urine Mucus 2+ RPR Titer 02/16/17 07:00 WBC RBC Hgb Hct MCV MCH MCHC RDW Plt Count MPV Sodium Potassium Chloride Carbon Dioxide Anion Gap BUN Creatinine Creat Clearance w eGFR Random Glucose Calcium Total Bilirubin AST ALT Alkaline Phosphatase Total Protein Albumin Urine Color Urine Appearance Urine pH Ur Specific [place] Urine Protein Urine Glucose (UA) Urine Ketones Urine Blood Urine Nitrite Urine Bilirubin Urine Urobilinogen Ur Leukocyte Esterase Urine RBC Urine WBC Urine Mucus RPR Titer Nonreactive 02/17/17 12:06 Assessment: 02/17/17 12:06 withdrawal sx, athletes foot Plan: cont detox, tinactin ordered, fluids, encourage ambualtion.
[2017-02-17] MEDS: TOLNAFTATE 1% CREAM 15 GM TUBE TP SCH ×2 (13:35→22:03)
[2017-02-17] MEDS: chlordiazePOXIDE 5 MG CAPSULE PO SCH (22:02)
[2017-02-17] MEDS: THIAMINE HCL 100 MG TABLET (FP) PO SCH (22:03)
[2017-02-17] MEDS: diphenhydrAMINE HCL 50 MG CAPSULE PO PRN (22:03)
[2017-02-18] MEDS: GABAPENTIN 300 MG CAPSULE (FP) PO SCH ×3 (05:41→22:14)
[2017-02-18] MEDS: chlordiazePOXIDE 5 MG CAPSULE PO SCH ×3 (05:41→17:22)
[2017-02-18] MEDS: TOLNAFTATE 1% CREAM 15 GM TUBE TP SCH ×2 (10:15→22:16)
[2017-02-18] MEDS: prednisoLONE ACETATE 1% OPHTH SUSP 5 ML BOTTLE OD SCH ×4 (10:15→22:15)
[2017-02-18] MEDS: FLUoxetine HCL 10 MG CAPSULE (FP) PO SCH (10:15)
[2017-02-18] MEDS: PRENATAL VITAMINS W/ FOLIC ACID TABLET (FP) PO SCH (10:15)
[2017-02-18] MEDS: NICOTINE 14 MG/24 HOURS TOPICAL PATCH TD SCH (10:16)
[2017-02-18] MEDS: METHADONE HCL 5 MG TABLET (FOR DETOX USE ONLY) PO SCH (10:16)
--- NOTE | 2017-02-18 10:34 | PN ---
[facility] Progress Note Note: Psychiatry Attending's note : Approached by patient. Reason : insomnia. Sleep hygiene discussed. Ambien 10 mg po hs. Patient made aware of parasomnias. Mr Goddard agrees with careplan.
[2017-02-18] MEDS: NICOTINE POLACRILEX 2 MG GUM BC PRN ×2 (11:39→17:25)
--- NOTE | 2017-02-18 16:53 | PN ---
[facility] Progress Note (SOAP) Subjective: Sweating, Interrupted Sleep. Objective: PT. A & O X 2 (DISORIENTED ABOUT DAY / DATE). PT. OBSERVED AMBULATING ON UNIT. NO ACUTE DISTRESS. 02/18/17 16:51 Vital Signs Temperature 97.2 F L 02/18/17 14:35 Pulse Rate 71 02/18/17 14:35 Respiratory Rate 18 02/18/17 14:35 Blood Pressure 127/76 02/18/17 14:35 O2 Sat by Pulse Oximetry (%) Laboratory Tests 02/15/17 02/16/17 02/16/17 22:10 07:00 07:00 WBC 7.6 RBC 4.45 Hgb 12.4 Hct 38.4 MCV 86.3 MCH 27.9 MCHC 32.4 RDW 14.5 Plt Count 244 MPV 8.5 Sodium 141 Potassium 4.1 Chloride 107 Carbon Dioxide 27 Anion Gap 7 L BUN 18 D Creatinine 1.1 Creat Clearance w eGFR > 60 Random Glucose 120 H Calcium 8.2 L Total Bilirubin 0.3 D AST 23 D ALT 40 Alkaline Phosphatase 93 Total Protein 6.0 L Albumin 3.1 L D Urine Color Yellow Urine Appearance Clear Urine pH 5.0 Ur Specific [place] 1.025 Urine Protein Negative Urine Glucose (UA) Negative Urine Ketones Negative Urine Blood 1+ H Urine Nitrite Negative Urine Bilirubin Negative Urine Urobilinogen Negative Ur Leukocyte Esterase Negative Urine RBC 0-2 Urine WBC 0-2 Urine Mucus 2+ RPR Titer 02/16/17 07:00 WBC RBC Hgb Hct MCV MCH MCHC RDW Plt Count MPV Sodium Potassium Chloride Carbon Dioxide Anion Gap BUN Creatinine Creat Clearance w eGFR Random Glucose Calcium Total Bilirubin AST ALT Alkaline Phosphatase Total Protein Albumin Urine Color Urine Appearance Urine pH Ur Specific [place] Urine Protein Urine Glucose (UA) Urine Ketones Urine Blood Urine Nitrite Urine Bilirubin Urine Urobilinogen Ur Leukocyte Esterase Urine RBC Urine WBC Urine Mucus RPR Titer Nonreactive LABS NOTED. Assessment: 02/18/17 16:51 WITHDRAWAL SYMPTOMS. Plan: CONTINUE DETOX.
[2017-02-18] MEDS: ZOLPIDEM TARTRATE 10 MG TABLET (PARK CARE ONLY) PO PRN (22:14)
[2017-02-18] MEDS: THIAMINE HCL 100 MG TABLET (FP) PO SCH (22:14)
[2017-02-18] MEDS: chlordiazePOXIDE HCL 10 MG CAPSULE PO SCH (22:14)
[2017-02-19] MEDS: NICOTINE POLACRILEX 2 MG GUM BC PRN ×3 (02:42→18:20)
[2017-02-19] MEDS: GABAPENTIN 300 MG CAPSULE (FP) PO SCH ×3 (06:24→22:15)
[2017-02-19] MEDS: chlordiazePOXIDE HCL 10 MG CAPSULE PO SCH ×3 (06:24→17:21)
[2017-02-19] MEDS ORDERED: METHADONE HCL 10 MG TABLET (FOR DETOX USE ONLY) PO SCH (10:00)
[2017-02-19] MEDS: FLUoxetine HCL 10 MG CAPSULE (FP) PO SCH (10:46)
[2017-02-19] MEDS: prednisoLONE ACETATE 1% OPHTH SUSP 5 ML BOTTLE OD SCH ×4 (10:46→22:14)
[2017-02-19] MEDS: NICOTINE 14 MG/24 HOURS TOPICAL PATCH TD SCH (10:47)
[2017-02-19] MEDS: PRENATAL VITAMINS W/ FOLIC ACID TABLET (FP) PO SCH (10:47)
[2017-02-19] MEDS: TOLNAFTATE 1% CREAM 15 GM TUBE TP SCH ×2 (10:48→22:15)
[2017-02-19 12:01] LABS: HIV 1 & 2 AB NEGATIVE; HIV 1 AGp24 NEGATIVE
--- NOTE | 2017-02-19 17:05 | PN ---
S Progress Note (SOAP) Subjective: Interrupted sleep, anxious, irritable, diarrhea, rhinorrhea, chills. Patient is for discharge home tomorrow. He requested to leave at 7am. As per patient, he will be going home briefly then go to intermediate card [facility] inpatient rehab. Objective: 02/19/17 17:00 Last Vital Signs Temp Pulse Resp BP Pulse Ox 96.4 F L 73 18 130/81 02/19/17 12:58 02/19/17 12:58 02/19/17 12:58 02/19/17 12:58 Laboratory Tests 02/15/17 02/16/17 02/16/17 22:10 07:00 07:00 WBC 7.6 RBC 4.45 Hgb 12.4 Hct 38.4 MCV 86.3 MCH 27.9 MCHC 32.4 RDW 14.5 Plt Count 244 MPV 8.5 Sodium 141 Potassium 4.1 Chloride 107 Carbon Dioxide 27 Anion Gap 7 L BUN 18 D Creatinine 1.1 Creat Clearance w eGFR > 60 Random Glucose 120 H Calcium 8.2 L Total Bilirubin 0.3 D AST 23 D ALT 40 Alkaline Phosphatase 93 Total Protein 6.0 L Albumin 3.1 L D Urine Color Yellow Urine Appearance Clear Urine pH 5.0 Ur Specific [place] 1.025 Urine Protein Negative Urine Glucose (UA) Negative Urine Ketones Negative Urine Blood 1+ H Urine Nitrite Negative Urine Bilirubin Negative Urine Urobilinogen Negative Ur Leukocyte Esterase Negative Urine RBC 0-2 Urine WBC 0-2 Urine Mucus 2+ RPR Titer HIV 1&2 Antibody Screen HIV P24 Antigen 02/16/17 02/19/17 07:00 06:14 WBC RBC Hgb Hct MCV MCH MCHC RDW Plt Count MPV Sodium Potassium Chloride Carbon Dioxide Anion Gap BUN Creatinine Creat Clearance w eGFR Random Glucose Calcium Total Bilirubin AST ALT Alkaline Phosphatase Total Protein Albumin Urine Color Urine Appearance Urine pH Ur Specific [place] Urine Protein Urine Glucose (UA) Urine Ketones Urine Blood Urine Nitrite Urine Bilirubin Urine Urobilinogen Ur Leukocyte Esterase Urine RBC Urine WBC Urine Mucus RPR Titer Nonreactive HIV 1&2 Antibody Screen Negative HIV P24 Antigen Negative Labs noted: UA has 1+ blood Assessment: 02/19/17 17:01 Withdrawal symptoms Noted with microscopic hematuria Plan: Continue detox Microscopic hematuria: encouraged to drink lots of water, repeat UA
[2017-02-19 17:58] LABS: URINE APPEARANCE CLEAR; URINE BILIRUBIN NEGATIVE (NEGATIVE); URINE BLOOD NEGATIVE (NEGATIVE); URINE COLOR LTYELLOW; URINE GLUCOSE (UA) NEGATIVE (NEGATIVE); URINE KETONE NEGATIVE (NEGATIVE); URINE NITRITE NEGATIVE (NEGATIVE); URINE PROTEIN NEGATIVE (NEGATIVE); URINE UROBILINOGEN NEGATIVE mg/dL (0.2-1.0)
[2017-02-19 21:21] LABS: URINE LEUK ESTERASE Negative (NEGATIVE)
[2017-02-19 22:12] VITALS: BP 124/82; PULSE 69; TEMP 97.6
[2017-02-19] MEDS: THIAMINE HCL 100 MG TABLET (FP) PO SCH (22:15)
[2017-02-19] MEDS: ZOLPIDEM TARTRATE 10 MG TABLET (PARK CARE ONLY) PO PRN (22:16)
[2017-02-20] MEDS: GABAPENTIN 300 MG CAPSULE (FP) PO SCH (05:23)
[2017-02-20] MEDS ORDERED: METHADONE HCL 5 MG TABLET (FOR DETOX USE ONLY) PO SCH (06:00)
--- NOTE | 2017-02-20 09:03 | DS ---
[facility] Detox Discharge Summary Admission Date: 02/15/17 Discharge Date: 02/20/17 - History Present History: Alcohol Dependence, Cocaine Dependence, Opioid Dependence Additional Comments: PT WAS D/C'D EARLIER TODAY. - Physical Exam Results Vital Signs: Vital Signs Temperature 97.6 F 02/19/17 22:11 Pulse Rate 69 02/19/17 22:11 Respiratory Rate 18 02/20/17 03:30 Blood Pressure 124/82 02/19/17 22:11 O2 Sat by Pulse Oximetry (%) Pertinent Admission Physical Exam Findings: WITHDRAWAL SX Laboratory Last Values WBC 7.6 K/mm3 (4.0-10.0) 02/16/17 07:00 RBC 4.45 M/mm3 (4.00-5.60) 02/16/17 07:00 Hgb 12.4 GM/dL (11.7-16.9) 02/16/17 07:00 Hct 38.4 % (35.4-49) 02/16/17 07:00 MCV 86.3 fl (80-96) 02/16/17 07:00 MCH 27.9 pg (25.7-33.7) 02/16/17 07:00 MCHC 32.4 g/dl (32.0-35.9) 02/16/17 07:00 RDW 14.5 % (11.9-15.9) 02/16/17 07:00 Plt Count 244 K/MM3 (134-434) 02/16/17 07:00 MPV 8.5 fl (7.5-11.1) 02/16/17 07:00 Sodium 141 mmol/L (136-145) 02/16/17 07:00 Potassium 4.1 mmol/L (3.5-5.1) 02/16/17 07:00 Chloride 107 mmol/L (98-107) 02/16/17 07:00 Carbon Dioxide 27 mmol/L (21-32) 02/16/17 07:00 Anion Gap 7 (8-16) L 02/16/17 07:00 BUN 18 mg/dL (7-18) D 02/16/17 07:00 Creatinine 1.1 mg/dL (0.7-1.3) 02/16/17 07:00 Creat Clearance w eGFR > 60 (>60) 02/16/17 07:00 Random Glucose 120 mg/dL (74-106) H 02/16/17 07:00 Calcium 8.2 mg/dL (8.5-10.1) L 02/16/17 07:00 Total Bilirubin 0.3 mg/dL (0.2-1.0) D 02/16/17 07:00 AST 23 U/L (15-37) D 02/16/17 07:00 ALT 40 U/L (12-78) 02/16/17 07:00 Alkaline Phosphatase 93 U/L (45-117) 02/16/17 07:00 Total Protein 6.0 g/dl (6.4-8.2) L 02/16/17 07:00 Albumin 3.1 g/dl (3.4-5.0) L D 02/16/17 07:00 Urine Color Ltyellow 02/19/17 13:00 Urine Appearance Clear 02/19/17 13:00 Urine pH 6.0 (5.0-8.0) 02/19/17 13:00 Ur Specific [place] 1.015 (1.005-1.025) 02/19/17 13:00 Urine Protein Negative (NEGATIVE) 02/19/17 13:00 Urine Glucose (UA) Negative (NEGATIVE) 02/19/17 13:00 Urine Ketones Negative (NEGATIVE) 02/19/17 13:00 Urine Blood Negative (NEGATIVE) 02/19/17 13:00 Urine Nitrite Negative (NEGATIVE) 02/19/17 13:00 Urine Bilirubin Negative (NEGATIVE) 02/19/17 13:00 Urine Urobilinogen Negative mg/dL (0.2-1.0) 02/19/17 13:00 Ur Leukocyte Esterase Negative (NEGATIVE) 02/19/17 13:00 Urine RBC 0-2 /hpf (0-3) 02/15/17 22:10 Urine WBC 0-2 /hpf (3-5) 02/15/17 22:10 Urine Mucus 2+ 02/15/17 22:10 RPR Titer Nonreactive (NONREACTIVE) 02/16/17 07:00 HIV 1&2 Antibody Screen Negative 02/19/17 06:14 HIV P24 Antigen Negative 02/19/17 06:14 - Treatment Hospital Course: Detox Protocol Followed, Detoxed Safely, Responded well, Discharged Condition Good - Medication Discharge Medications: Ambulatory Orders Gabapentin [Neurontin -] 300 mg PO Q8H 02/15/17 Prednisolone Acetate [Pred Mild] 1 drp OD QID 02/15/17 Fluoxetine HCl [Prozac -] 10 mg PO DAILY #30 cap 02/16/17 Gabapentin [Neurontin -] 300 mg PO TID #90 cap 02/16/17 Prednisolone 1% Ophthalmic [Pred Forte 1% -] 1 drop OD QID 02/16/17 Hydroxyzine Pamoate [Vistaril -] 50 mg PO HS #30 capsule 02/18/17 - Diagnosis (1) Alcohol dependence with uncomplicated withdrawal Status: Acute (2) Cocaine dependence Status: Acute Qualifiers: Substance use status: uncomplicated Qualified Code(s): F14.20 - Cocaine dependence, uncomplicated; F14.20 - Cocaine dependence, uncomplicated; F14.20 - Cocaine dependence, uncomplicated (3) Opioid dependence with withdrawal Status: Acute (4) Nicotine dependence Status: Acute Qualifiers: Nicotine product type: cigarettes Substance use status: in withdrawal Qualified Code(s): F17.213 - Nicotine dependence, cigarettes, with withdrawal; F17.213 - Nicotine dependence, cigarettes, with withdrawal - AMA Did Patient Leave Against Medical Advice: No
== END 2017-02-20 06:30 | disposition home or self-care (01) | DRG 773 ==
LOC: YASAS 13:04 → Y3N 17:39
PROVIDERS: ADMIT Internal Medicine; ATTEND Internal Medicine
PROC: HZ2ZZZZ Detoxification Services for Substance Abuse Treatment (ICD-10-PCS; principal; 2017-02-15)
DX: F11.23 Opioid dependence with withdrawal (principal); F10.230 Alcohol dependence with withdrawal, uncomplicated; F14.20 Cocaine dependence, uncomplicated; F17.210 Nicotine dependence, cigarettes, uncomplicated; F32.9 Major depressive disorder, single episode, unspecified; F19.24 Other psychoactive substance dependence with psychoactive substance-induced mood disorder; G47.00 Insomnia, unspecified
CPT/HCPCS: 36415; 80053; 81003; 81015; 85027; 86593; 87389; 93005; 93010